=== PATIENT | female | born 1980 | race Caucasian/White ===

== ENCOUNTER 2017-01-27 00:30 | Emergency (ER) | payer OTHER ==
[~2017-01-27] VITALS: Ht 157.5 cm; Wt 58.6 kg
[~2017-01-27 00:30] MED LIST: CITA20TA9 PO; MULTCAP42 PO; QUET1TAB91 PO
[2017-01-27 00:33] VITALS: BP 122/73; PULSE 73; TEMP 36.5; O2SAT 97; Ht 157.5 cm; Wt 58.6 kg
--- NOTE | 2017-01-27 04:31 | EMERGENCY ROOM VISIT NOTE ---
History Report prepared by Keyur: Eryn Fan Under the Supervision of: Dr. Amie Salcedo M.D. First contact with patient: 00:38 Chief Complaint: HAND PAIN/INJURY Stated Complaint: NUMBNESS IN HAND AFTER ACCIDENTAL CUT History of Present Illness The patient is a 36 year old female who presents to the Emergency Room with complaints of an episode of hand pain starting three days ago. The patient states that she cut her wrist using a brand new X-[employer] knife when trying to take the cap off of it. She reports that when she did so the blade slipped and caught the side of her wrist. She reports that she went to Urgent Care 3 hours later since she had to go to work. She states that they glued it shut. The patient states that she noticed it started to become numb on the top of her hand and up into her pinky and ring finger. She reports that she feels like it isn't deep, but is just her skin. The patient states that she went back to Urgent Care this morning for the numbness and they placed her on a steroid. She states that they told her that if it was still numb when she got off work today to come to the ED. Source of History: patient Onset: 3 days ago Position: hand (left) Quality: numbness Timing: other (episode) Associated Symptoms: + numbness Review of Systems See HPI for pertinent positives & negatives. A total of 10 systems reviewed and were otherwise negative. Past Medical & Surgical Medical Problems: (1) Asthma (2) Diabetes Family History No pertinent family history Social History Smoking Status: Current Every Day Smoker Alcohol Use: occasionally Marital Status: Housing Status: lives with family Occupation Status: employed Current/Historical Medications Scheduled Citalopram Hydrobromide (Celexa), 20 MG PO DAILY Multiple Vitamin (Multivitamins), 1 TABLET PO DAILY Quetiapine Fumarate (Seroquel), 25 MG PO HS Allergies Coded Allergies: No Known Allergies (Unverified , 09/03/13) Physical Exam Vital Signs Date Time Temp Pulse Resp B/P (MAP) Pulse Ox O2 Delivery O2 Flow Rate FiO2 01/27/17 00:33 36.5 73 18 122/73 97 Room Air Physical Exam Vital signs reviewed. General: Well-appearing 36-year-old female, in no significant distress. HEENT: No scleral icterus, PERRLA, neck supple. Atraumatic. Cardiovascular: Regular rate and rhythm, no extra sounds. Pulmonary: Clear to auscultation bilaterally, normal work of breathing. Abdomen: Soft, nontender, nondistended, positive bowel sounds. Musculoskeletal: No peripheral edema. Left wrist medially has a 1 cm laceration that appears to be healing and has surrounding ecchymosis. Neurologic: Patient awake alert and oriented x 3, full strength in all 4 extremities. Full ROM of hand. Full taxation economist strength. Hand is neurovascularly intact. Skin: Warm, dry, no rash Medical Decision & Procedures ED Course 0046: Past medical records reviewed. The patient was evaluated in room A10. A complete history and physical examination was performed. I discussed findings with her. She verbalized agreement of the treatment plan. The patient was discharged home. Medical Decision Etiologies such as fracture, dislocation, neurovascular compromise, compartment syndrome, soft tissue injury, as well as others were entertained. This patient was evaluated and appeared to be in no significant distress. Patient's left wrist appears to be well-healing. She is neurovascularly intact. I suspect the patient has lacerated a peripheral nerve. This will likely regenerate. I do not think the oral steroid she was prescribed earlier today are necessary. She was advised to stop this prescription. Patient was advised to use that hand and wrist as she normally would. She'll follow-up with orthopedic surgery as needed and return to the ER for worsening of symptoms or any medical concerns. Medication Reconcilliation Current Medication List: was personally reviewed by me Blood Pressure Screening Patient's blood pressure: Normal blood pressure Blood pressure disposition: Did not require urgent referral Impression Primary Impression: Left hand paresthesia Scribe Attestation The scribe's documentation has been prepared under my direction and personally reviewed by me in its entirety. I confirm that the note above accurately reflects all work, treatment, procedures, and medical decision making performed by me. Departure Information Dispostion Home / Self-Care Referrals Gio Shah M.D. (PCP) Forms HOME CARE DOCUMENTATION FORM, IMPORTANT VISIT INFORMATION Patient Instructions My [facility] Additional Instructions Diagnosis: Left hand parasthesias Ibuprofen 600 mg every 6 hours as needed for pain with food. Stop steroids. Follow up with your primary doctor in 1 week for reevaluation. Return to the ED for worsening of symptoms or any medical concerns.
== END 2017-01-27 00:57 | disposition home or self-care (01) ==
LOC: C.EDB 00:31 → C.EDA 00:57
DX: R20.2 Paresthesia of skin (principal); M79.642 Pain in left hand; J45.909 Unspecified asthma, uncomplicated; E11.9 Type 2 diabetes mellitus without complications; F17.200 Nicotine dependence, unspecified, uncomplicated; Z79.899 Other long term (current) drug therapy

== ENCOUNTER 2017-07-11 16:18 | Emergency (ER) | payer SELFPAY ==
[~2017-07-11] VITALS: Ht 160 cm; Wt 61.1 kg
[2017-07-11 16:29] VITALS: TEMP 37; Ht 160 cm; Wt 61.1 kg
[2017-07-11] MEDS ORDERED: SODIUM CHLORIDE 0.9% 1000ML 2,000 ML IV STA (16:41)
[2017-07-11] MEDS ORDERED: FAMOTIDINE 20MG/5ML IV PUSH IV STA (16:41)
[2017-07-11] MEDS ORDERED: ONDANSETRON INJ 2 MG/ML 2 ML VIAL IV STA (16:41)
[2017-07-11 17:10] LABS: BASO % 0.3 %; BASO ABS # 0.03 K/uL (0-0.2); EOS % 0.5 %; EOS ABS # 0.05 K/uL (0-0.5); HEMATOCRIT 41.5 % (37-47); HEMOGLOBIN 14.9 g/dL (12.0-16.0); IG# 0.01 K/uL (0.00-0.02); LYMPH % 3.1 %; LYMPH ABS # 0.34 K/uL (1.2-3.4); MEAN CELL VOLUME 96.1 fL (80-100); MEAN CORPUSCULAR HEMOGLOBIN 34.5 pg (25-34); MEAN CORPUSCULAR HGB CONC 35.9 g/dl (32-36); MEAN PLATELET VOLUME 9.7 fL (7.4-10.4); MONO ABS # 1.11 K/uL (0.11-0.59); NEUT ABS # 9.54 K/uL (1.4-6.5); PLATELET COUNT 205 K/uL (130-400); RED CELL DISTRIBUTION WIDTH CV 12.8 % (11.5-14.5); RED CELL DISTRIBUTION WIDTH SD 44.8 fL (36.4-46.3); WHITE BLOOD COUNT 11.08 K/uL (4.8-10.8)
[2017-07-11 17:27] LABS: ALBUMIN 3.7 gm/dl (3.4-5.0); CALCIUM 8.5 mg/dl (8.5-10.1); CREATININE 0.74 mg/dl (0.60-1.20); POTASSIUM 3.5 mmol/L (3.5-5.1)
[2017-07-11 17:30] LABS: TOTAL PROTEIN 7.2 gm/dl (6.4-8.2)
--- NOTE | 2017-07-11 19:17 | DIAGNOSTIC IMAGING REPORT ---
PELVIC COMPLETE NON OB CLINICAL HISTORY: 37 years-old Female presenting with lower abdominal pain, . TECHNIQUE: Real-time grayscale and color and spectral Doppler ultrasound imaging of the pelvis was performed first using a transabdominal probe and subsequently transvaginal for better characterization. COMPARISON: 07/07/2008. FINDINGS: Uterus: Normal. Anteverted. The uterus measures 8.1 x 3.6 x 4.4 cm. Endometrial stripe measures 9 mm in thickness. Endometrium normal-appearing. Cervix contains nabothian cysts. Right adnexa: Right ovary contains multiple follicles. Right ovary measures 3.2 x 1.3 x 2.5 cm. Normal color Doppler flow and arterial and venous waveforms within the ovarian parenchyma. Left adnexa: Left ovary contains a complex hypoechoic lesion measuring 1.2 x 0.9 x 1.3 cm, possibly hemorrhagic cyst. Dominant follicle with a cumulus oophorus noted adjacent to this. Left ovary measures 3.4 x 2.3 x 2.2 cm. Normal color Doppler flow and arterial and venous waveforms within the ovarian parenchyma. Other: Trace free fluid, likely physiologic. IMPRESSION: 1. No evidence of ovarian torsion. 2. Small hemorrhagic cyst suspected in the left ovary. 3. Dominant follicle in the left ovary with evidence suggesting imminent ovulation. 4. Trace free fluid is likely physiologic. Electronically signed by: Lamine Rm M.D. 07/11/2017 7:16 PM Dictated Date/Time: 07/11/2017 7:12 PM
--- NOTE | 2017-07-11 19:23 | EMERGENCY ROOM VISIT NOTE ---
History Report prepared by Keyur: Renetta Brambila Under the Supervision of: Dr. Miguel Ceron M.D. First contact with patient: 16:34 Chief Complaint: FLU LIKE SX Stated Complaint: FEVER,VOMITING, ABDOMINAL PAIN, URGENT CARE REFERR History of Present Illness The patient is a 37 year old female who presents to the Emergency Room with complaints of intermittent lower abdominal pain beginning a week ago. The patient reports her abdominal pain radiates to her lower back. The patient reports when she woke up this morning her abdominal pain worsened and she started to have nausea, vomiting, a fever, and sweats. The patient reports she had some similar back pain a couple months ago which she attributed to kidney stones. The patient was seen at urgent care and referred to the ED for a r/o of appendicitis. The patient reports she has not had a bowel movement in a day which is not normal for her. Presently, the patient has some nausea. She reports darkened urine. She denies any diarrhea, urinary burning, vaginal discharge, cough or congestion. She denies any recent sick contact. The patient' s last menstrual period was two weeks ago. The patient has had a normal previously. She has a history of tubal ligation. The patient does not currently have any insurance. Source of History: patient Onset: a week ago Position: abdomen Quality: other (radiates to back) Timing: intermittent Associated Symptoms: + fevers, + diaphoresis, + nausea, + vomiting, + abdominal pain, + back pain, + urinary symptoms, No cough, No diarrhea Review of Systems See HPI for pertinent positives and negatives. A total of ten systems were reviewed and were otherwise negative. Past Medical & Surgical Medical Problems: (1) Asthma (2) Diabetes Family History No pertinent family history Social History Smoking Status: Current Every Day Smoker Alcohol Use: occasionally Marital Status: Housing Status: lives with family Occupation Status: employed Current/Historical Medications Scheduled Ondasetron Odt (Zofran Odt), 4 MG SL Q6H Scheduled PRN Famotidine (Pepcid), 20 MG PO BID PRN for GI Upset Allergies Coded Allergies: No Known Allergies (Unverified , 07/11/17) Physical Exam Vital Signs Date Time Temp Pulse Resp B/P (MAP) Pulse Ox O2 Delivery O2 Flow Rate FiO2 07/11/17 20:36 82 18 107/75 98 07/11/17 19:13 80 18 112/64 98 Room Air 07/11/17 16:29 37.0 93 20 118/63 98 Room Air Physical Exam GENERAL: Awake, alert, in no distress HENT: Normocephalic, atraumatic. Oropharynx unremarkable. Dry MM. EYES: Normal conjunctiva. Sclera non-icteric. NECK: Supple. No nuchal rigidity. FROM. No JVD. RESPIRATORY: Clear to auscultation. CARDIAC: Regular rate, normal rhythm. Extremities warm and well perfused. Pulses equal. ABDOMEN: Mild LLQ and suprapubic tenderness. RLQ discomfort but no discrete tenderness, no peritoneal signs. Soft, non-distended. No rebound or guarding. No masses. RECTAL: Deferred. MUSCULOSKELETAL: Chest examination reveals no tenderness. The back is symmetrical on inspection without obvious abnormality. There is no CVA tenderness to palpation. No joint edema. LOWER EXTREMITIES: Calves are equal size bilaterally and non-tender. No edema. No discoloration. NEURO: Normal sensorium. No sensory or motor deficits noted. SKIN: No rash or jaundice noted. Medical Decision & Procedures ER Provider Diagnostic Interpretation: Radiology results as stated below per my review and radiologist interpretation: PELVIC COMPLETE NON OB FINDINGS: Uterus: Normal. Anteverted. The uterus measures 8.1 x 3.6 x 4.4 cm. Endometrial stripe measures 9 mm in thickness. Endometrium normal-appearing. Cervix contains nabothian cysts. Right adnexa: Right ovary contains multiple follicles. Right ovary measures 3.2 x 1.3 x 2.5 cm. Normal color Doppler flow and arterial and venous waveforms within the ovarian parenchyma. Left adnexa: Left ovary contains a complex hypoechoic lesion measuring 1.2 x 0.9 x 1.3 cm, possibly hemorrhagic cyst. Dominant follicle with a cumulus oophorus noted adjacent to this. Left ovary measures 3.4 x 2.3 x 2.2 cm. Normal color Doppler flow and arterial and venous waveforms within the ovarian parenchyma. Other: Trace free fluid, likely physiologic. IMPRESSION: 1. No evidence of ovarian torsion. 2. Small hemorrhagic cyst suspected in the left ovary. 3. Dominant follicle in the left ovary with evidence suggesting imminent ovulation. 4. Trace free fluid is likely physiologic. Electronically signed by: Lamine Rm M.D. Laboratory Results 07/11/17 17:00 Red Blood Count 4.32, Mean Corpuscular Volume 96.1, Mean Corpuscular Hemoglobin 34.5, Mean Corpuscular Hemoglobin Concent 35.9, Mean Platelet Volume 9.7, Neutrophils (%) (Auto) 86.0, Lymphocytes (%) (Auto) 3.1, Monocytes (%) (Auto) 10.0, Eosinophils (%) (Auto) 0.5, Basophils (%) (Auto) 0.3, Neutrophils # (Auto ) 9.54, Lymphocytes # (Auto) 0.34, Monocytes # (Auto) 1.11, Eosinophils # (Auto ) 0.05, Basophils # (Auto) 0.03 07/11/17 17:00 Test 07/11/17 17:00 07/11/17 19:00 White Blood Count 11.08 K/uL (4.8-10.8) Red Blood Count 4.32 M/uL (4.2-5.4) Hemoglobin 14.9 g/dL (12.0-16.0) Hematocrit 41.5 % (37-47) Mean Corpuscular Volume 96.1 fL (80-100) Mean Corpuscular Hemoglobin 34.5 pg (25-34) Mean Corpuscular Hemoglobin Concent 35.9 g/dl (32-36) Platelet Count 205 K/uL (130-400) Mean Platelet Volume 9.7 fL (7.4-10.4) Neutrophils (%) (Auto) 86.0 % Lymphocytes (%) (Auto) 3.1 % Monocytes (%) (Auto) 10.0 % Eosinophils (%) (Auto) 0.5 % Basophils (%) (Auto) 0.3 % Neutrophils # (Auto) 9.54 K/uL (1.4-6.5) Lymphocytes # (Auto) 0.34 K/uL (1.2-3.4) Monocytes # (Auto) 1.11 K/uL (0.11-0.59) Eosinophils # (Auto) 0.05 K/uL (0-0.5) Basophils # (Auto) 0.03 K/uL (0-0.2) RDW Standard Deviation 44.8 fL (36.4-46.3) RDW Coefficient of Variation 12.8 % (11.5-14.5) Immature Granulocyte % (Auto) 0.1 % Immature Granulocyte # (Auto) 0.01 K/uL (0.00-0.02) Erythrocyte Sedimentation Rate 8 mm/hr (0-21) Anion Gap 8.0 mmol/L (3-11) Est Creatinine Clear Calc Drug Dose 87.7 ml/min Estimated GFR () 121.7 Estimated GFR (Non- 105.0 BUN/Creatinine Ratio 18.0 (10-20) Calcium Level 8.5 mg/dl (8.5-10.1) Total Bilirubin 0.6 mg/dl (0.2-1) Direct Bilirubin 0.2 mg/dl (0-0.2) Aspartate Amino Transf (AST/SGOT) 16 U/L (15-37) Alanine Aminotransferase (ALT/SGPT) 24 U/L (12-78) Alkaline Phosphatase 50 U/L (45-117) C-Reactive Protein 1.11 mg/dl (0-0.29) Total Protein 7.2 gm/dl (6.4-8.2) Albumin 3.7 gm/dl (3.4-5.0) Lipase 122 U/L (73-393) Human Chorionic Gonadotropin, Qual NEG (NEG) Urine Color YELLOW Urine Appearance CLEAR (CLEAR) Urine pH 7.5 (4.5-7.5) Urine Specific [place] 1.010 (1.000-1.030) Urine Protein NEG (NEG) Urine Glucose (UA) NEG (NEG) Urine Ketones 1+ (NEG) Urine Occult Blood NEG (NEG) Urine Nitrite NEG (NEG) Urine Bilirubin NEG (NEG) Urine Urobilinogen NEG (NEG) Urine Leukocyte Esterase NEG (NEG) Laboratory results reviewed by me Medications Administered Medications (Trade) Dose Ordered Sig/Ruben Route Start Time Stop Time Status Last Admin Dose Admin Sodium Chloride 2,000 ml @ 999 mls/hr Q2H1M STAT IV 07/11/17 16:41 07/11/17 18:41 DC 07/11/17 17:54 999 MLS/HR Ondansetron HCl (Zofran Inj) 4 mg NOW STAT IV 07/11/17 16:41 07/11/17 16:50 DC 07/11/17 17:54 4 MG Famotidine (Pepcid 20mg Iv Push) 20 mg ONE STAT IV 07/11/17 16:41 07/11/17 16:50 DC 07/11/17 17:54 20 MG Ondansetron HCl (ZOFRAN ODT 4MG Home Pack) 1 homepack UD ONCE PO 07/11/17 20:15 07/11/17 20:16 DC 07/11/17 20:15 1 HOMEPACK ED Course 1640: The patient was evaluated in room A2. A complete history and physical exam was performed. 1847: The patient is resting comfortably. 2003: I updated the patient on her test results. She is feeling better. 2014: I reevaluated the patient. Discussed results and discharge instructions: She verbalized understanding and agreement. The patient is ready for discharge. Medical Decision I reviewed the patient's past medical history, medications, and the nursing notes as described above. Differential diagnosis: Etiologies such as appendicitis, diverticulitis, PUD, biliary pathology, UTI, pancreatitis, obstruction, mesenteric ischemia, aortic pathology, infections, inflammatory bowel disease, renal colic, as well as others were entertained. The patient is a 37 y/o woman who presents to the emergency department with lower abdominal pain with associated n/v and f/c over the past week, referred to ED by urgent care per [facility]. On arrival the patient is in NAD, AFVSS. Mild ttp LLQ and suprapubically. Only mild RLQ discomfort without discrete ttp. Given predominantly left-sided sx unlikey to be appendicitis. Pelvic US demonstrates likely hemorrhagic ovarian cyst as likely source and correlates well with patient's sx. WBC 11, nonspecific. Labs otherwise unremarkable. Patient improved after IVF, toradol, zofran , pepcid. We agree there is no need for CT scan at this time. Plan for pcp f/u. Findings and plan for follow-up reviewed with patient. Patient agreeable and d/c'd per discharge instructions. Medication Reconcilliation Current Medication List: was personally reviewed by me Blood Pressure Screening Patient's blood pressure: Normal blood pressure Impression Primary Impression: Hemorrhagic cyst of left ovary Scribe Attestation The scribe's documentation has been prepared under my direction and personally reviewed by me in its entirety. I confirm that the note above accurately reflects all work, treatment, procedures, and medical decision making performed by me. Departure Information Dispostion Home / Self-Care Prescriptions Famotidine (PEPCID) 20 Mg Tab 20 MG PO BID Y for GI Upset for 7 Days, #14 TAB Prov: Miguel Ceron M.D. 07/11/17 Ondasetron Odt (ZOFRAN ODT) 4 Mg Tab 4 MG SL Q6H for Nausea, #10 TAB Prov: Miguel Ceron M.D. 07/11/17 Forms HOME CARE DOCUMENTATION FORM, IMPORTANT VISIT INFORMATION Patient Instructions Cyst Ruptured Ovarian Tx, ED Cyst Ovarian, [facility] Additional Instructions Please follow up with and establish care with a primary care physician in the next week for re-evaluation. Your are most likely due to a ruptured ovarian cyst. Otherwise, your exam, lab results, and ultrasound did not show signs of an emergent condition at this time. Acetaminophen or ibuprofen for pain and fevers as needed. Zofran as needed for nausea. Pepcid as needed for GI upset/acid reduction. Drink plenty of fluids to ensure hydration. Return to the emergency department for worsening symptoms as described in the accompanying instructions.
[2017-07-11] MEDS ORDERED: FAMO20TA9 PO (20:09)
[2017-07-11] MEDS ORDERED: ONDA4TAB10 SL (20:09)
[2017-07-11] MEDS ORDERED: ONDANSETRON HOME PACK 4MG OD TAB PO ONE (20:15)
[2017-07-11 20:36] VITALS: BP 107/75; PULSE 82; O2SAT 98
== END 2017-07-11 20:37 | disposition home or self-care (01) ==
LOC: C.EDB 16:20 → C.EDA 20:37
DX: N83.202 Unspecified ovarian cyst, left side (principal); J45.909 Unspecified asthma, uncomplicated; E11.9 Type 2 diabetes mellitus without complications; F17.210 Nicotine dependence, cigarettes, uncomplicated

== ENCOUNTER 2017-07-17 13:29 | Emergency (ER) | payer SELFPAY ==
[~2017-07-17] VITALS: Ht 157.5 cm; Wt 60.8 kg
[~2017-07-17 13:29] MED LIST changes: -CITA20TA9 PO; +FAMO20TA9 PO; -MULTCAP42 PO; +ONDA4TAB10 SL; -QUET1TAB91 PO
[2017-07-17 13:31] VITALS: TEMP 36.4; Ht 157.5 cm; Wt 60.8 kg
[2017-07-17] MEDS ORDERED: SODIUM CHLORIDE 0.9% 1000ML 1,000 ML IV STA (14:06)
[2017-07-17] MEDS ORDERED: ACETAMINOPHEN IV 100 ML IV STA (14:06)
[2017-07-17] MEDS ORDERED: ONDANSETRON INJ 2 MG/ML 2 ML VIAL IV STA (14:06)
[2017-07-17 14:39] LABS: BASO % 0.4 %; BASO ABS # 0.04 K/uL (0-0.2); EOS % 0.8 %; EOS ABS # 0.09 K/uL (0-0.5); HEMATOCRIT 40.2 % (37-47); IG# 0.03 K/uL (0.00-0.02); LYMPH % 20.1 %; LYMPH ABS # 2.28 K/uL (1.2-3.4); MEAN CELL VOLUME 96.4 fL (80-100); MEAN CORPUSCULAR HEMOGLOBIN 33.6 pg (25-34); MEAN CORPUSCULAR HGB CONC 34.8 g/dl (32-36); MEAN PLATELET VOLUME 9.4 fL (7.4-10.4); MONO % 7.6 %; MONO ABS # 0.86 K/uL (0.11-0.59); NEUT % 70.8 %; NEUT ABS # 8.05 K/uL (1.4-6.5); PLATELET COUNT 265 K/uL (130-400); WHITE BLOOD COUNT 11.35 K/uL (4.8-10.8)
[2017-07-17] MEDS ORDERED: MULT-506 PO (14:55)
[2017-07-17 15:05] LABS: ALBUMIN 3.9 gm/dl (3.4-5.0); ALT/SGPT 35 U/L (12-78); AST/SGOT 17 U/L (15-37); BLOOD UREA NITROGEN 18 mg/dl (7-18); CARBON DIOXIDE 25 mmol/L (21-32); CREATININE 0.83 mg/dl (0.60-1.20); GLUCOSE 90 mg/dl (70-99); LIPASE 165 U/L (73-393); POTASSIUM 3.6 mmol/L (3.5-5.1); SODIUM 136 mmol/L (136-145)
[2017-07-17 15:08] LABS: ALKALINE PHOSPHATASE 47 U/L (45-117); TOTAL PROTEIN 7.3 gm/dl (6.4-8.2)
[2017-07-17] MEDS ORDERED: OPTIRAY 320 IV PRN (15:45)
--- NOTE | 2017-07-17 15:59 | DIAGNOSTIC IMAGING REPORT ---
ABDOMEN AND PELVIS CT WITH IV CONTRAST CT DOSE: 252.55 mGy.cm HISTORY: Acute bilateral lower quadrant abdominal pain and tenderness LLQ pain, RLQ tenderness TECHNIQUE: Multiaxial CT images of the abdomen and pelvis were performed following the use of intravenous contrast. A dose lowering technique was utilized adhering to the principles of ALARA. COMPARISON STUDY: Pelvic ultrasound 07/11/2017. FINDINGS: Mild subsegmental left basilar atelectasis/scarring. Minimal groundglass opacities about the right lung base also suggests atelectasis. No pneumatosis or pneumoperitoneum. Imaged inferior cardiac chambers are unremarkable. Gallbladder is mildly contracted. There is mild periportal edema, likely secondary to overhydration. 3 mm low attenuating lesion of the posterior right hepatic lobe is too small to characterize however may reflect a hepatic cyst. The spleen, pancreas and adrenal glands are within normal limits. Kidneys are unremarkable. The urinary bladder is partially decompressed. Ureters are not well visualized. Peripherally enhancing 1.8 cm structure about the left ovary suggests involuting follicle. Uterus is unremarkable. The aorta appears to be within normal limits. No bulky adenopathy. Study is mildly limited without the use of oral contrast and also relative lack of significant mesenteric fat. There is no bowel obstruction. There are multiple nondilated fluid-filled loops of small bowel within the lower abdomen and pelvis. Nondistention of the sigmoid and descending colon with mild wall thickening. The appendix is not definitively seen. No definite secondary signs of acute appendicitis. There is suggestion of minimal mesenteric fat stranding adjacent to the left pericolic gutter. Soft tissues are unremarkable. Bones appear intact. IMPRESSION: 1. Multiple fluid-filled nondilated loops of small bowel throughout the abdomen and pelvis may be physiologic or reflect enteritis. No bowel obstruction. 2. Involuting follicle of the left ovary, 1.8 cm. 3. Nonvisualization of the appendix. No definite secondary signs to suggest acute appendicitis. 4. Mild wall thickening of the of the descending and sigmoid colon is likely secondary to underdistention with mild colitis thought to be less likely. Electronically signed by: Elvis Duran M.D. 07/17/2017 3:57 PM Dictated Date/Time: 07/17/2017 3:48 PM
[2017-07-17 16:40] VITALS: BP 102/67; PULSE 60; O2SAT 98
--- NOTE | 2017-07-17 17:54 | EMERGENCY ROOM VISIT NOTE ---
ED Visit Note First contact with patient: 13:34 Chief Complaint: Left lower quadrant abdominal pain. History of Present Illness: Ms. Solano is a 37 year-old white female who ambulates into the ED complaining of left lower quadrant quadrant abdominal pain. Historically patient reports she has been having ongoing abdominal issues for the last 4 years. She reports multiple tests and scopes have been performed but no cause has been identified. No surgery has been required. Additionally patient reports she was seen on July 08 for left lower quadrant discomfort. After testing it was found that she had a developing left ovarian cyst and that was felt to be the cause of her pain. She was discharged to home in stable condition. Patient reports since being home she had one additional day of pain but then has been pain-free. She has not sought follow-up prior to this visit to the ED. Patient reports her pain restarted 2 days ago. Initially it was mild and has gradually increased in intensity. She describes her pain as a pressure-like sensation in the left lower quadrant with radiation into the lower back. She rates her discomfort 6/10. She reports her pain worsens with movement and palpation. She has not identified any alleviating factors related to the pain. She has been using dietary supplements without relief of her discomfort. Associated with her pain she reports she feels like her abdomen is distended. She denies any associated fevers, chills, sweats, skin eruptions, skin color changes, upper abdominal pain, nausea, vomiting, diarrhea, constipation, rectal bleeding, black/tarry stools, urinary symptoms, vaginal bleeding, vaginal discharge painful intercourse, postcoital i leading. Review of Systems: As noted above in history of present illness. All body systems were reviewed and found to be negative as noted above. Past Medical History: As previously noted and diabetes, unspecified skin disorder, asthma, status post tubal ligation. Current Medications: Multivitamins. Allergies to Medications: Patient denies. Social History: Patient is currently employed; she feels safe in her home environment; she admits to tobacco use and denies alcohol use. Physical Examination: Vital Signs: Date Time Temp Pulse Resp B/P (MAP) Pulse Ox O2 Delivery O2 Flow Rate FiO2 07/17/17 16:40 60 18 102/67 98 Room Air 07/17/17 15:30 54 20 101/53 100 Room Air 07/17/17 13:31 36.4 75 18 144/65 99 Room Air GENERAL: 37-year-old female in mild to moderate distress due to pain, nontoxic- appearing, afebrile and hemodynamically stable. NEUROLOGICAL: Awake, alert and oriented to person, place and time. Answering questions appropriately and following commands. Normal gait. Good hand eye coordination. SKIN: Warm, dry and pink. No soft tissue eruptions or trauma noted. HEENT: Atraumatic and normocephalic. PERRL. Sclera white and conjunctiva pink. Oral cavity moist and pink. Pharynx is nonerythematous or edematous. Speech normal. No lymphadenopathy. Trachea midline. No jugular venous distention. BACK: No tenderness over the bony spine. No CVA tenderness. THORAX: Lungs sounds are clear to auscultation and equal bilaterally with symmetrical chest wall. No wheezing, rales or rhonchi. No crepitus, tenderness , subcutaneous air or deformities noted. HEART: Regular rate and rhythm. No gallops, rubs or murmurs are appreciated. ABDOMEN: Soft with minimal tenderness in the left lower quadrant and moderate tenderness in the right lower quadrant just superior to McBurney's point with voluntary guarding. The lower abdomen is slightly distended.. Positive bowel sounds in all quadrants. No rigidity or organomegaly. EXTREMITIES: Moves all extremities well on command and with purpose. All distal neurovascular statuses are intact and equal bilaterally. ED Course: Patient is assessed as noted above. Laboratory Testing: Test 07/17/17 14:22 07/17/17 14:43 Range/Units White Blood Count 11.35 4.8-10.8 K/uL Red Blood Count 4.17 4.2-5.4 M/uL Hemoglobin 14.0 12.0-16.0 g/dL Hematocrit 40.2 37-47 % Mean Corpuscular Volume 96.4 80-100 fL Mean Corpuscular Hemoglobin 33.6 25-34 pg Mean Corpuscular Hemoglobin Concent 34.8 32-36 g/dl Platelet Count 265 130-400 K/uL Mean Platelet Volume 9.4 7.4-10.4 fL Neutrophils (%) (Auto) 70.8 % Lymphocytes (%) (Auto) 20.1 % Monocytes (%) (Auto) 7.6 % Eosinophils (%) (Auto) 0.8 % Basophils (%) (Auto) 0.4 % Neutrophils # (Auto) 8.05 1.4-6.5 K/uL Lymphocytes # (Auto) 2.28 1.2-3.4 K/uL Monocytes # (Auto) 0.86 0.11-0.59 K/uL Eosinophils # (Auto) 0.09 0-0.5 K/uL Basophils # (Auto) 0.04 0-0.2 K/uL RDW Standard Deviation 46.0 36.4-46.3 fL RDW Coefficient of Variation 13.0 11.5-14.5 % Immature Granulocyte % (Auto) 0.3 % Immature Granulocyte # (Auto) 0.03 0.00-0.02 K/uL Sodium Level 136 136-145 mmol/L Potassium Level 3.6 3.5-5.1 mmol/L Chloride Level 105 98-107 mmol/L Carbon Dioxide Level 25 21-32 mmol/L Anion Gap 6.0 3-11 mmol/L Blood Urea Nitrogen 18 7-18 mg/dl Creatinine 0.83 0.60-1.20 mg/dl Est Creatinine Clear Calc Drug Dose 81.2 ml/min Estimated GFR () 105.9 Estimated GFR (Non- 91.4 BUN/Creatinine Ratio 21.5 10-20 Random Glucose 90 70-99 mg/dl Calcium Level 9.0 8.5-10.1 mg/dl Total Bilirubin 0.3 0.2-1 mg/dl Direct Bilirubin < 0.1 0-0.2 mg/dl Aspartate Amino Transf (AST/SGOT) 17 15-37 U/L Alanine Aminotransferase (ALT/SGPT) 35 12-78 U/L Alkaline Phosphatase 47 45-117 U/L Total Protein 7.3 6.4-8.2 gm/dl Albumin 3.9 3.4-5.0 gm/dl Lipase 165 73-393 U/L Urine Color YELLOW Urine Appearance CLEAR CLEAR Urine pH 7.0 4.5-7.5 Urine Specific [place] 1.012 1.000-1.030 Urine Protein NEG NEG Urine Glucose (UA) NEG NEG Urine Ketones NEG NEG Urine Occult Blood NEG NEG Urine Nitrite NEG NEG Urine Bilirubin NEG NEG Urine Urobilinogen NEG NEG Urine Leukocyte Esterase NEG NEG IV Contrast Abdominal/Pelvic CT: Was reviewed by myself and read by the radiologist showing multiple fluid-filled nondilated loops of small bowel throughout the abdomen and pelvis. Nondistention of the sigmoid and descending colon with mild wall thickening. The appendix was not visualized but no secondary signs of acute appendicitis were noted. Mild wall thickening of the descending and sigmoid colon likely secondary to under distention with mild colitis thought to be a less likely cause. Patient was hydrated with normal saline and received 1 g of acetaminophen IV for pain. Patient was reassessed multiple times during her stay in the emergency department. Patient's case was reviewed with Dr. Rueda; we agreed on diagnostic approach, treatment, disposition and plan. Patient was educated about today's findings and instructed on her treatment plan ; she verbalized understanding and agreement with this plan. Clinical Impression: Left lower quadrant pressure. Right lower quadrant tenderness. Decision-Making: Initially in my differential diagnosis I considered appendicitis, constipation, colitis, bowel obstruction, kidney stone, ovarian cyst rupture and other causes. Disposition: Patient discharged home in stable condition; prior to departure she was reassessed and subjectively reported she was feeling better and rated her discomfort 2/10. Plan: Patient was encouraged alternate ibuprofen and acetaminophen every 3 hours as needed for persistent pain. Patient was encouraged to stay well-hydrated with increased clear fluids. I did note that the patient seem to have an increased amount of stool in her colon and I did recommend her to consider using [id number] stool softeners or MiraLAX as needed for up to 7 days. Patient was encouraged to follow-up with her PCP for recheck and possible referral to gastroenterology. Patient was encouraged return the ED for worsening pain, return of fever, bloody stools, uncontrolled vomiting or any new/concerning symptoms.
== END 2017-07-17 17:12 | disposition home or self-care (01) ==
LOC: C.EDB 13:30 → C.EDC 17:12
DX: R10.32 Left lower quadrant pain (principal); R10.813 Right lower quadrant abdominal tenderness; Z72.0 Tobacco use